=== PATIENT | female | born 1940 ===

== ENCOUNTER 2020-08-13 09:09 | Emergency (ER) | payer MEDICARE, MEDICAID ==
[~2020-08-13] VITALS: Ht 160 cm; Wt 56.7 kg
[~2020-08-13 09:09] MED LIST: NORCO 5-325 TA1 EACH ORAL
[2020-08-13] MEDS ORDERED: HYDROcodone/Acetamin 5/325 tab ORAL ONE (09:15)
[2020-08-13] MEDS ORDERED: Ketorolac 30mg Inj IM ONE (09:15)
--- NOTE | 2020-08-13 09:16 | NUR ---
ED Nurse Note: Patient from home and brought in by [id number] due to ground level fall this morning. Patient slipped and fell then landed on her right shoulder while carrying groceries. Denies LOC or head injury. No bsvious dislocation but pt unable to move her rigth shoulder due to pain. AAO x4, follows commands.
--- NOTE | 2020-08-13 09:21 | Emergency Room Report ---
History of Present Illness General Chief Complaint: Upper Extremity Injury Source: Patient Present Illness HPI Patient was coming home with groceries and lost her balance and fell onto her right shoulder. It was non-syncopal. There is no head injury. She was transported by EMS. She rates the pain 100 over 10. She denies any numbness. She denies any other injury. She rates the pain 5/10 in her right shoulder. It is aching and worsened when she tries to move her shoulder. She fractured her proximal humerus 5 years ago. Patient denies exposure to COVID-19 positive contacts. The patient has a history of COPD. She continues to smoke. She says she is run out of her medication. She denies fevers or chills. There is a nonproductive cough. She complains of some chest pain. She states this is not exertional. No sore throat, palpitations, nausea, vomiting, diarrhea, dysuria, abdominal pain, rashes, depression, anxiety, visual changes, dizziness, headache. Allergies: Coded Allergies: No Known Allergies (Unverified , 12/06/17) COVID-19 Screening Contact w/high risk pt: No Experienced COVID-19 symptoms?: No COVID-19 Testing performed PRESETTER OPERATOR: No Patient History Past Medical History: see triage record Social History: Reports: smoking Social History Narrative Lives with 8-year-old daughter and puppy -actually it is her granddaughter Reviewed Nursing Documentation: PMH: Agreed; PSxH: Agreed Nursing Documentation-PM Past Medical History: No History, Except For Hx Asthma: Yes Review of Systems All Other Systems: negative except mentioned in HPI Physical Exam Vital Signs Date Time Temp Pulse Resp B/P (MAP) Pulse Ox O2 Delivery O2 Flow Rate FiO2 08/13/20 09:04 97.5 77 16 133/76 (95) 96 Room Air Sp02 EP Interpretation: reviewed, normal General Appearance: well appearing, no apparent distress, GCS 15, thin Head: normocephalic, atraumatic Eyes: bilateral eye normal inspection, bilateral eye PERRL, bilateral eye EOMI ENT: moist mucus membranes Respiratory: rhonchi, wheezing, expiration - Minimal Cardiovascular #1: regular rate, rhythm Cardiovascular #2: 2+ radial (R) - Good capillary fill Gastrointestinal: non tender, soft, no mass Genitourinary: no CVA tenderness Musculoskeletal: back normal, pelvis stable, tenderness - Right shoulder, decr eased range of mation - Right shoulder, other - Wrist and elbow without tenderness Neurologic: alert, distal neuro normal, grossly normal Psychiatric: mood/affect normal Skin: no rash, other - Slight saucerization and hyperpigmentation Medical Decision Making Diagnostic Impression: Primary Impression: Proximal humeral fracture Qualified Codes: S42.201A - Unspecified fracture of upper end of right humerus, initial encounter for closed fracture Additional Impression: COPD (chronic obstructive pulmonary disease) Qualified Codes: J43.9 - Emphysema, unspecified ER Course Patient presents with right shoulder pain after non-syncopal fall. Differential includes sprain, strain, fracture amongst others. Clinically fractures highly suspect. She also has COPD. She is run out of her medications for this. Does not appear to be the major problem today. Focus will be on evaluation of the shoulder injury. Patient will receive EKG, chest x-ray, shoulder film and labs. In addition the patient will be treated with [place] and Toradol. EKG without injury. Chest x-ray some COPD but no infiltrates. Right shoulder film with fracture and possible dislocation. Labs unremarkable. Discussion of x-ray with radiologist. Unable to determine if this is dislocation or hemarthrosis. Images sent to orthopedic doctor motor and controls tester. CT shoulder ordered, as x-ray is equivocal. Complex case. Consideration for possible admission. CT reveals old fracture and fracture that is new. No dislocation. This was discussed with the radiologist. Sling applied by tech. Position excellent with improvement in pain. Distal neurovascular exam normal as checked by me. Discussed findings with patient. Discussed treatment plan with patient. This is a non-operative fracture. Patient is stable for outpatient observation and treatment. Laboratory Tests Test 08/13/20 09:25 White Blood Count 5.3 K/UL (4.8-10.8) Red Blood Count 4.17 M/UL (4.20-5.40) L Hemoglobin 12.7 G/DL (12.0-16.0) Hematocrit 37.5 % (37.0-47.0) Mean Corpuscular Volume 90 FL (80-99) Mean Corpuscular Hemoglobin 30.5 PG (27.0-31.0) Mean Corpuscular Hemoglobin Concent 33.9 G/DL (32.0-36.0) Red Cell Distribution Width 12.6 % (11.6-14.8) Platelet Count 238 K/UL (150-450) Mean Platelet Volume 5.2 FL (6.5-10.1) L Neutrophils (%) (Auto) 54.0 % (45.0-75.0) Lymphocytes (%) (Auto) 34.8 % (20.0-45.0) Monocytes (%) (Auto) 6.2 % (1.0-10.0) Eosinophils (%) (Auto) 3.3 % (0.0-3.0) H Basophils (%) (Auto) 1.7 % (0.0-2.0) Prothrombin Time 10.7 SEC (9.30-11.50) Prothrombin Time INR 1.0 (0.9-1.1) Activated Partial Thromboplast Time 23 SEC (23-33) Sodium Level 142 MMOL/L (136-145) Potassium Level 3.4 MMOL/L (3.5-5.1) L Chloride Level 107 MMOL/L (98-107) Carbon Dioxide Level 28 MMOL/L (21-32) Anion Gap 7 mmol/L (5-15) Blood Urea Nitrogen 14 mg/dL (7-18) Creatinine 0.8 MG/DL (0.55-1.30) Estimated Glomerular Filtration Rate > 60 mL/min (>60) Glucose Level 96 MG/DL (74-106) Calcium Level 8.6 MG/DL (8.5-10.1) Total Bilirubin 0.7 MG/DL (0.2-1.0) Aspartate Amino Transferase (AST) 20 U/L (15-37) Alanine Aminotransferase (ALT) 13 U/L (12-78) Alkaline Phosphatase 58 U/L (46-116) Total Protein 6.5 G/DL (6.4-8.2) Albumin 3.4 G/DL (3.4-5.0) Globulin 3.1 g/dL Albumin/Globulin Ratio 1.1 (1.0-2.7) EKG Diagnostic Results Rate: normal Rhythm: NSR ST Segments: no acute changes Rhythm Strip Diag. Results EP Interpretation: yes Rhythm: NSR, no PVC's, no ectopy Chest X-Ray Diagnostic Results Chest X-Ray Diagnostic Results : Chest X-Ray Ordered: Yes # of Views/Limited/Complete: 1 View Indication: Other EP Interpretation: Yes Interpretation: no consolidation, no effusion, no pneumothorax, other - COPD and fracture right proximal humerus Impression: Other Electronically Signed by: Electronically signed by Devante Flores MD Other X-Ray Diagnostic Results Other X-Ray Diagnostic Results : X-Ray ordered: Right shoulder # of Views/Limited Vs Complete: 3 View Indication: Pain EP Interpretation: Yes Interpretation: other - Fracture, increased space in the glenohumeral space, possible dislocation, some angulation of the proximal humerus Impression: Other Electronically Signed by: Electronically signed by Devante Flores MD CT/MRI/US Diagnostic Results CT/MRI/US Diagnostic Results : Imaging Test Ordered: R shoulder Impression 1. Acute, minimally displaced fracture of the right humeral greater tubercle. 2. Abnormal appearance of the right humeral head neck junction, likely bony remodeling secondary to old trauma given reported history of prior humeral fracture. 3. Mild inferior subluxation of the humeral head with respect to the glenoid, which may be chronic due to prior fracture or secondary to small glenohumeral joint effusion. 4. Mild emphysema with evidence of prior granulomatous disease. Last Vital Signs Date Time Temp Pulse Resp B/P (MAP) Pulse Ox O2 Delivery O2 Flow Rate FiO2 08/13/20 13:56 98.3 79 15 135/77 100 Room Air Status: improved Disposition: HOME, SELF-CARE Condition: Improved Scripts Vit No.114/Fa/Nyasia (PRENATE AM TABLET) 1 Each Tablet 1 EACH PO DAILY, #30 TAB Prov: Devante Flores MD 08/13/20 Acetaminophen (Tylenol) 325 Mg Tablet 650 MG ORAL Q6H PRN for Prn Pain/Headache/Temp > 101, #20 TAB 0 Refills Prov: Devante Flores MD 08/13/20 Hydrocodone Bit/Acetaminophen 5-325* (NORCO 5-325 TABLET*) 1 Each Tablet 1 TAB ORAL Q6H PRN for FOR PAIN, #12 TAB 0 Refills Prov: Devante Flores MD 08/13/20 Albuterol Sulfate* (Albuterol Sulfate Hfa*) 8.5 Gm Hfa.aer.ad 2 PUFF INH Q6H, #1 INH Prov: Devante Flores MD 08/13/20 Devante Flores MD Aug 13, 2020 09:21
[2020-08-13] MEDS ORDERED: Ketorolac 30mg Inj IV ONE (09:30)
[2020-08-13 09:34] VITALS: BP 154/73
--- NOTE | 2020-08-13 09:37 | NUR ---
ED Nurse Note: Collected blood specimen then sent.
[2020-08-13 09:40] LABS: BASOPHILS % (AUTO) 1.7 % (0.0-2.0); EOSINOPHILS % (AUTO) 3.3 % (0.0-3.0); HEMATOCRIT 37.5 % (37.0-47.0); HEMOGLOBIN 12.7 G/DL (12.0-16.0); LYMPHOCYTES % (AUTO) 34.8 % (20.0-45.0); MEAN CORPUSCULAR VOLUME 90 FL (80-99); MONOCYTES % (AUTO) 6.2 % (1.0-10.0); PLATELET COUNT 238 K/UL (150-450); RED BLOOD COUNT 4.17 M/UL (4.20-5.40); RED CELL DISTRIBUTION WIDTH 12.6 % (11.6-14.8); WHITE BLOOD COUNT 5.3 K/UL (4.8-10.8)
--- NOTE | 2020-08-13 09:40 | NUR ---
ED Nurse Note: instrument and control technician Brandon at the bed side for xray procedure.
[2020-08-13 09:52] LABS: ANION GAP 7 mmol/L (5-15); BLOOD UREA NITROGEN 14 mg/dL (7-18); CALCIUM 8.6 MG/DL (8.5-10.1); CARBON DIOXIDE 28 MMOL/L (21-32); CHLORIDE 107 MMOL/L (98-107); CREATININE 0.8 MG/DL (0.55-1.30); POTASSIUM 3.4 MMOL/L (3.5-5.1); SODIUM 142 MMOL/L (136-145)
[2020-08-13 09:57] LABS: ALANINE AMINOTRANSFERASE 13 U/L (12-78); ALBUMIN 3.4 G/DL (3.4-5.0); ALBUMIN/GLOBULIN RATIO 1.1 (1.0-2.7); ALKALINE PHOSPHATASE 58 U/L (46-116); ASPARTATE AMINO TRANSFERASE 20 U/L (15-37); BILIRUBIN,TOTAL 0.7 MG/DL (0.2-1.0)
--- NOTE | 2020-08-13 10:15 | Diagnostic Imaging Report ---
Indication: Reason For Exam: TRAUMA Technique: Single AP view of the chest. Comparison: Same day right shoulder radiographs Findings: The cardiomediastinal silhouette is within normal limits. No airspace consolidation. Streaky left basilar airspace opacity likely represents subsegmental atelectasis. No pneumothorax. No pleural effusion. Right shoulder fracture or dislocation is noted. IMPRESSION: 1. Left basilar subsegmental atelectasis. 2. Right shoulder fracture-dislocation, better appreciated on dedicated right shoulder radiographs performed on same-day.
--- NOTE | 2020-08-13 10:15 | Diagnostic Imaging Report ---
INDICATION: Shoulder pain after trauma TECHNIQUE: XRAY Shoulder Compl R Multiple views of the right shoulder were obtained COMPARISON: None FINDINGS: There is inferior and anterior displacement of the humeral head with respect to the glenoid. There is an acute fracture through the anatomic neck of the humerus, with extension through the greater tubercle. Deformity of the distal right clavicle may be secondary to old trauma. There is mild acromioclavicular joint osteoarthrosis. Visualized right lung is clear. There is diffuse soft tissue swelling around the right shoulder joint. IMPRESSION: 1. Acute right humeral anatomic neck fracture with extension to the greater tubercle. 2. Subluxation of the right glenohumeral joint. This may related to acute fracture-dislocation or displacement secondary to effusion/hemarthrosis.
[2020-08-13 11:32] VITALS: BP 142/80
[2020-08-13 12:30] VITALS: BP 138/85
[2020-08-13] MEDS ORDERED: ALBUTEROL SULF8.5 G1 INH (13:50)
[2020-08-13] MEDS ORDERED: PRENATE AM TAB1 EACH PO (13:50)
[2020-08-13] MEDS ORDERED: TYLENOL325 MG ORAL (13:50)
[2020-08-13] MEDS ORDERED: NORCO 5-325 TA1 EAC1 ORAL (13:50)
--- NOTE | 2020-08-13 13:50 | Diagnostic Imaging Report ---
Indication: Right shoulder pain Technique: CT Shoulder wo Contrast RT CT dose: Total DLP 112.1 mGycm; CTDI vol 4.1 mGy Comparison: Same day right shoulder radiographs Findings: Osseous structures: There is an acute fracture of the greater tubercle with minimal inferior displacement. No significant rotation or angulation of the fragment. There is deformity of the anatomic humeral neck, without associated cortical breach. There is mild inferior sensation of the humeral head with respect to the glenoid, without evidence of dislocation. Cortical hypertrophy and bony remodeling of the right distal clavicle is likely secondary to old fracture. There are mild degenerative changes of the acromioclavicular joint. Coracoclavicular interval is maintained. Soft tissues: There is mild to moderate fat stranding overlying the right rotator cuff muscle bellies and surrounding the right proximal humerus. Additional findings: Mild aortoiliac atherosclerotic calcification. Visualized right lung demonstrates mild emphysema. There is mild peribronchial thickening. Heavily calcified mediastinal lymph nodes are noted. There are multilevel discogenic degenerative changes of the visualized spine. Impression: 1. Acute, minimally displaced fracture of the right humeral greater tubercle. 2. Abnormal appearance of the right humeral head neck junction, likely bony remodeling secondary to old trauma given reported history of prior humeral fracture. 3. Mild inferior subluxation of the humeral head with respect to the glenoid, which may be chronic due to prior fracture or secondary to small glenohumeral joint effusion. 4. Mild emphysema with evidence of prior granulomatous disease. The CT scanner at [facility] is accredited by the [employer] and the scans are performed using protocols designed to limit radiation exposure to as low as reasonably achievable to attain images of sufficient resolution adequate for diagnostic evaluation.
[2020-08-13 13:56] VITALS: BP 135/77
--- NOTE | 2020-08-13 13:56 | NUR ---
ER DISCHARGE NOTE: Patient is cleared to be discharged per ERMD, pt is aox4, on room air, with stable vital signs. pt was given dc and prescription instructions, pt was able to verbalize understanding, pt id band and iv site removed without complications. pt is able to ambulate with her cane. pt took all belongings and left with [facility] transport from hospital.
--- NOTE | 2020-08-13 13:56 | NUR ---
Note sánchezmonica in EDM - 08/13/20 at 1417 by SALLY ER DISCHARGE NOTE: Patient is cleared to be discharged per ERMD, pt is aox4, on room air, with stable vital signs. pt was given dc and prescription instructions, pt was able to verbalize understanding, pt id band and iv site removed without complications. pt is able to ambulate with steady gait. pt took all belongings.
--- NOTE | 2020-08-21 16:12 | Cardiology Report ---
APPROVED REPORT EKG Measurement Heart [id number] <Conclusion> Normal sinus rhythm Low voltage QRS Borderline ECG
== END 2020-08-13 13:56 | disposition home or self-care (01) ==
LOC: EDBD 09:09 → EMR 09:30
DX: S43.201A Unspecified subluxation of right sternoclavicular joint, initial encounter (principal); J43.9 Emphysema, unspecified; W19.XXXA Unspecified fall, initial encounter; Y92.9 Unspecified place or not applicable; J44.9 Chronic obstructive pulmonary disease, unspecified; L81.9 Disorder of pigmentation, unspecified
CPT/HCPCS: 36415; 71045; 73030; 73200; 80053; 85025; 85610; 85730; 93005; 96374; 99284; J1885